=== PATIENT | female | born 1995 | race African-American/Black ===

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

== ENCOUNTER 2020-06-18 19:06 | Emergency (ER) | payer OTHER ==
[~2020-06-18] VITALS: Ht 160 cm; Wt 48.0 kg
--- NOTE | 2020-06-18 21:17 | NUR ---
not in lobby
--- NOTE | 2020-06-18 21:26 | NUR ---
PT CAME IN CO OF PAINFUL URINATION AND FREQUENCY THAT STARTED EARLIER TODAY. PT ALSO STATES SHES BEEN HAVING BILAT FLANK PAIN AND THERE WAS SOME BLOOD IN HER URINE EARLIER TODAY. UA HAS BEEN SENT. [facility] RESTING [facility] CONNECT[facility] TO MONITORING EQUIPMENT
[2020-06-18 21:50] LABS: HCG UR SG 1.015 (1.003-1.030)
[2020-06-18 21:55] LABS: MICROSCOPIC INDICATED
[2020-06-18] MEDS ORDERED: PHENAZOPYRIDINE 200 MG TABLET ONE (21:55)
[2020-06-18 21:57] VITALS: BP 120/72
[2020-06-18] MEDS ORDERED: PHENAZOPYRIDINE 200 MG TABLET PO ONE (22:00)
== END 2020-06-18 22:59 | disposition home or self-care (01) ==
LOC: ED 19:36
DX: N30.01 Acute cystitis with hematuria (principal); R30.0 Dysuria; R35.0 Frequency of micturition; R10.30 Lower abdominal pain, unspecified
CPT/HCPCS: 81001; 81025; 87077; 87086; 87186; 99283